=== PATIENT | female | born 2000 | race Caucasian/White ===

== ENCOUNTER 2023-09-17 14:50 | Emergency (ER) | payer OTHER, SELFPAY ==
[2023-09-17 14:53] VITALS: BP 127/67; PULSE 70; RESP 18; TEMP 36.8; O2SAT 100; BMI 26.2
--- NOTE | 2023-09-17 15:00 | ED.RN ---
given 2 cups of juice in triage
[2023-09-17 15:22] LABS: Bedside Glucose 63 mg/dL (74-106)
[2023-09-17 16:53] VITALS: PULSE 76; RESP 23; O2SAT 100
--- NOTE | 2023-09-17 16:58 | ED.RN ---
Addendum entered by Sobia Mcqueen 09/17/23 17:05: pt had a small amount of cheerios and some water this morning. had nothing else to eat before syncopal episode. [employer] she ate a meal and her blood sugar was 62 on arrival to the ED. Original Note: pt states she got dizzy and hot, felt like her brain was foggy and she wasn't able to comprehend what her professors were saying. then she suddenly passed out and woke up on the ground. unknown for how long pt was unconscious. denies any injury or hitting her head. pt states when i woke up it felt like someone was sitting on my chest and is now c/o intermittent chest pressure. has had some off and on acid reflux for the past few weeks. witnesses to the episode state pt was shaking and her eyes stayed open the whole time. denies complaints now.
--- OUTSIDE RECORDS SUMMARY | 2023-09-17 17:31 | XMS RPT_ITS | CCD ---
Author Name Unknown Address [address] [facility] [address] [place] [id number] Organization [facility] Care Team Providers Care Furniture Salesperson Name Role Phone Judson Zavala MD Primary Care Provider Ellen SILVERWARE BUFFING MACHINE OPERATOR.Aniya MARTÍNEZ Primary Care Provider ANIYA SMITH Attending Unavailable JUDSON ZAVALA Primary Care Unavailable DIONY DOLAN Attending Unavailable Medications Current Medications Medication Drug Class(es) Dates Sig (Normalized) Sig (Original) 1 ml medroxyPROGESTERone acetate 150 mg/ml injection (1 source) Progestin Start: 1 End: 2 medroxyPROGESTERone (DEPO-PROVERA) 150 mg/mL injection Inject 1 mL intramuscularly every 12 weeks. 1 mL 3 02/12/2021 01/07/2022 Discontinued Completed/Discontinued Medications Medication Drug Class(es) Dates Sig (Normalized) Sig (Original) 168 hr ethinyl estradiol 0.47557 mg/hr / norelgestromin 0.36058 mg/hr transdermal system (2 sources) Progestin, Estrogen Start: 01-07-2022 End: 12-20-2022 apply 1 dose transdermal route every week Ethinyl Estradiol-Norelges trom (XULANE) 150-35 mcg/24 hr patch Apply 1 Patch as directed one time a week. Continuous use, NO inactive week. 12 Patch 5 01/07/2022 12/20/2022 Discontinued Problems Active Problems Problem Classification Problem Date Documented Da te Episodic/Chronic Contraceptive and procreative management (1 source) Contraception status; Translations: [Encounter for surveillance of transdermal patch hormonal contraceptive device] Episodic Menstrual disorders (3 sources) Dysmenorrhea; Translations: [Dysmenorrhea, unspecified] Onset: 12-29-2018 12-29-2018 Chronic Other bone disease and musculoskeletal deformities (3 sources) Adolescent idiopathic scoliosis of thoracic spine; Translations: [Adolescent idiopathic scoliosis, thoracic region] Onset: 09-02-2016 09-02-2016 Chronic Other screening for suspected conditions (not mental disorders or infectious disease) (2 sources) Patient encounter status; Translations: [Encounter for screening for lipoid disorders] Episodic Past or Other Problems Problem Classification Problem Date Documented Da te Episodic/Chronic Fracture of lower limb (3 sources) Closed fracture of metatarsal bone; Translations: [Fracture of unspecified metatarsal bone(s), unspecified foot, initial encounter for closed fracture] Onset: 11-11-2011 11-11-2011 Episodic Unclassified (1 source) UDS FOR [place] [id number] PANEL UDS Onset: 02-18-2023 Results Test Name Value Interpretation Reference Range Facil ity Vital Signs Date Time Vital Sign Value Performing Clinician Kate franklin 12-20-2022 10:03-0400 Body height 172.7 cm Anyia Smith SILVERWARE BUFFING MACHINE OPERATOR.DEICER REPAIRER Work Phone: [facility] 12-20-2022 10:03-0400 Body weight 75.75 kg Aniya Smith SILVERWARE BUFFING MACHINE OPERATOR.DEICER REPAIRER Work Phone: [facility] 12-20-2022 10:03-0400 Diastolic blood pressure 70 mm[Hg] Aniya Smith SILVERWARE BUFFING MACHINE OPERATOR.DEICER REPAIRER Work Phone: [facility] 12-20-2022 10:03-0400 Heart rate 72 /min Aniya Smith SILVERWARE BUFFING MACHINE OPERATOR.DEICER REPAIRER Work Phone: [facility] 12-20-2022 10:03-0400 Respiratory rate 14 /min Aniya Smith SILVERWARE BUFFING MACHINE OPERATOR.DEICER REPAIRER Work Phone: [facility] 12-20-2022 10:03-0400 Systolic blood pressure 110 mm[Hg] Aniya Smith SILVERWARE BUFFING MACHINE OPERATOR.DEICER REPAIRER Work Phone: [facility] 01-07-2022 08:26-0400 Body height 170.2 cm Romi Mathis SILVERWARE BUFFING MACHINE OPERATOR.DEICER REPAIRER Work Phone: [facility] 01-07-2022 08:26-0400 Body weight 75.57 kg Romi Delfina SILVERWARE BUFFING MACHINE OPERATOR.DEICER REPAIRER Work Phone: [facility] 01-07-2022 08:26-0400 Diastolic blood pressure 60 mm[Hg] Romi [place] SILVERWARE BUFFING MACHINE OPERATOR.DEICER REPAIRER Work Phone: [facility] 01-07-2022 08:26-0400 Systolic blood pressure 110 mm[Hg] Romi [place] SILVERWARE BUFFING MACHINE OPERATOR.DEICER REPAIRER Work Phone: [facility] Encounters Encounter Date Encounter Type Care Provider Facility Start: 02-18-2023 ambulatory [facility] Facility:[facility] Start: 01-29-2023 ambulatory Romi Delfina SILVERWARE BUFFING MACHINE OPERATOR.DEICER REPAIRER Work Phone: [facility] Start: 01-29-2023 Patient encounter procedure Romi [place] SILVERWARE BUFFING MACHINE OPERATOR.DEICER REPAIRER Work Phone: OB/Gynecology Plan of Treatment Date Care Activity Detail Author Start: 01-28-2024 Urine microalbumin profile DTA P,TDAP,TD (7 - Td or Tdap) [facility] Start: 12-21-2023 COVID-19 VACCINE (3 - Booster for Pfizer series) COVID-19 VACCINE (3 - Booster for Pfizer series) [facility] Immunizations Immunization Date Immunization Notes Care Provider Fa cility 12-24-2016 Human Papillomavirus 9-valent vaccine Romi Delfina SILVERWARE BUFFING MACHINE OPERATOR.DEICER REPAIRER Work Phone: [facility] 08-12-2016 Human Papillomavirus 9-valent vaccine Romi Delfina SILVERWARE BUFFING MACHINE OPERATOR.DEICER REPAIRER Work Phone: [facility] 05-30-2016 Human Papillomavirus 9-valent vaccine Romi [place] SILVERWARE BUFFING MACHINE OPERATOR.DEICER REPAIRER Work Phone: [facility] 05-30-2016 meningococcal polysaccharide (groups A, C, Y and W-135) diphtheria toxoid conjugate vaccine (MCV4P) Romi [place] SILVERWARE BUFFING MACHINE OPERATOR.DEICER REPAIRER Work Phone: [facility] 01-27-2014 tetanus toxoid, redu arnoldo diphtheria toxoid, and acellular pertussis vaccine, adsorbed Romi Delfina SILVERWARE BUFFING MACHINE OPERATOR.DEICER REPAIRER Work Phone: [facility] Work Phone: 01-27-2014 varicella virus vaccine Faustino e [place] SILVERWARE BUFFING MACHINE OPERATOR.DEICER REPAIRER Work Phone: [facility] Work Phone: 06-14-2011 influenza virus vacc ine, live, attenuated, for intranasal use Romi [place] SILVERWARE BUFFING MACHINE OPERATOR.DEICER REPAIRER Work Phone: [facility] Work Phone: 12-12-2008 Chicken Pox (disease) Romi [place] SILVERWARE BUFFING MACHINE OPERATOR.DEICER REPAIRER Work Phone: [facility] Work Phone: 03-03-2007 diphtheria, tetanus toxoids and acellular pertussis vaccine Romi [place] SILVERWARE BUFFING MACHINE OPERATOR.DEICER REPAIRER Work Phone: [facility] 03-03-2007 measles, mumps and rubella virus vaccine Romi [place] SILVERWARE BUFFING MACHINE OPERATOR.DEICER REPAIRER Work Phone: [facility] 03-03-2007 poliovirus vaccine, inactivated Romi [place] SILVERWARE BUFFING MACHINE OPERATOR.DEICER REPAIRER Work Phone: [facility] 09-08-2002 diphtheria, tetanus toxoids and acellular pertussis vaccine Romi [place] SILVERWARE BUFFING MACHINE OPERATOR.DEICER REPAIRER Work Phone: [facility] Work Phone: 09-08-2002 haemophilus influenz ae type b vaccine, HbOC conjugate Romi [place] SILVERWARE BUFFING MACHINE OPERATOR.DEICER REPAIRER Work Phone: [facility] Work Phone: 09-08-2002 pneumococcal conjuga te vaccine, 7 valent Romi Delfina SILVERWARE BUFFING MACHINE OPERATOR.DEICER REPAIRER Work Phone: [facility] Work Phone: 05-26-2002 measles, mumps and rubella virus vaccine Romi [place] SILVERWARE BUFFING MACHINE OPERATOR.DEICER REPAIRER Work Phone: [facility] Work Phone: 05-26-2002 varicella virus vaccine Faustino e [place] SILVERWARE BUFFING MACHINE OPERATOR.DEICER REPAIRER Work Phone: [facility] Work Phone: 03-03-2002 haemophilus influenz ae type b vaccine, HbOC conjugate Romi Delfina SILVERWARE BUFFING MACHINE OPERATOR.DEICER REPAIRER Work Phone: [facility] Work Phone: 03-03-2002 hepatitis B vaccine, pediatric or pediatric/adolescent dosage Romi Delfina SILVERWARE BUFFING MACHINE OPERATOR.[facility] Work Phone: [facility] Work Phone: 03-03-2002 poliovirus vaccine, inactivated Romi Delfina SILVERWARE BUFFING MACHINE OPERATOR.[facility] Work Phone: [facility] Work Phone: 2001 diphtheria, tetanus toxoids and acellular pertussis vaccine Romi [place] SILVERWARE BUFFING MACHINE OPERATOR.[facility] Work Phone: [facility] Work Phone: 2001 haemophilus influenz ae type b vaccine, HbOC conjugate Romi Delfina SILVERWARE BUFFING MACHINE OPERATOR.[facility] Work Phone: [facility] Work Phone: 2001 pneumococcal conjuga te vaccine, 7 valent Romi [place] SILVERWARE BUFFING MACHINE OPERATOR.[facility] Work Phone: [facility] Work Phone: 2001 diphtheria, tetanus toxoids and acellular pertussis vaccine Romi Delfina SILVERWARE BUFFING MACHINE OPERATOR.[facility] Work Phone: [facility] Work Phone: 2001 haemophilus influenz ae type b vaccine, HbOC conjugate Romi [place] SILVERWARE BUFFING MACHINE OPERATOR.[facility] Work Phone: [facility] Work Phone: 2001 pneumococcal conjuga te vaccine, 7 valent Romi Delfina SILVERWARE BUFFING MACHINE OPERATOR.[facility] Work Phone: [facility] Work Phone: 2001 poliovirus vaccine, inactivated Romi [place] SILVERWARE BUFFING MACHINE OPERATOR.[facility] Work Phone: [facility] Work Phone: 2001 diphtheria, tetanus toxoids and acellular pertussis vaccine Romi Delfina SILVERWARE BUFFING MACHINE OPERATOR.[facility] Work Phone: [facility] Work Phone: 2001 pneumococcal conjuga te vaccine, 7 valent Romi Delfina SILVERWARE BUFFING MACHINE OPERATOR.DEICER REPAIRER Work Phone: [facility] Work Phone: 2001 poliovirus vaccine, inactivated Romi Delfina SILVERWARE BUFFING MACHINE OPERATOR.DEICER REPAIRER Work Phone: [facility] Work Phone: 2001 hepatitis B vaccine, pediatric or pediatric/adolescent dosage Romi Delfina SILVERWARE BUFFING MACHINE OPERATOR.DEICER REPAIRER Work Phone: [facility] Work Phone: 2001 hepatitis B vaccine, pediatric or pediatric/adolescent dosage Romi [place] SILVERWARE BUFFING MACHINE OPERATOR.DEICER REPAIRER Work Phone: [facility] Work Phone: Payers Date Payer Category Payer Unknown [employer] PPO [id number] 2019-Present [phone] [address] [place] [address] PPO [id number] 2019 Unknown [employer] PPO [id number] 2019-Present [phone] [address] [place] [address] PPO [id number] 2019 Unknown [id number] Self-pay Unknown [id number] Social History Date Type Detail Facility Start: 10-20-2017 Tobacco smoking stat us [facility] [place] Never smoked tobacco [facility] Work Phone: Start: 01-07-2022 Alcohol intake Current non-dr rim fire priming operator of alcohol (finding) [facility] Start: 01-31-2020 End: 12-20-2022 History SDOH Social Connections Phone 5 [facility] Start: 01-31-2020 History SDOH Social Connections Get Together 4 [facility] Start: 01-31-2020 End: 12-20-2022 History SDOH Social Connections Judaism 1 [facility] Start: 01-31-2020 End: 12-20-2022 History SDOH Social Connections Membership 2 [facility] Start: 01-31-2020 History SDOH Social Connections Meetings 99 [facility] Start: 01-31-2020 History SDOH Social Connections Living 7 [facility] Start: 01-31-2020 History SDOH Physica l Activity DPW 0 [facility] Start: 01-31-2020 Education 13 [facility] Start: 2001 Sex Assigned At Female [facility] Start: 12-28-2021 End: 01-07-2022 Exposure to SARS-CoV-2 (event) Not sure [facility] Work Phone: Start: 10-20-2017 Tobacco use and exposure Smokeless tobacco non-user [facility] Work Phone: Start: 12-20-2022 Alcohol intake Current drinke r of alcohol (finding) [facility] Start: 12-20-2022 History SDOH Social Connections Meetings 98 [facility] Start: 12-20-2022 History SDOH Physica l Activity DPW 3 [facility] Start: 12-20-2022 History SDOH Physica l Activity MPS 6 [facility] Start: 12-20-2022 Alcohol Comment [facility] Progress note 12-20-2022 Note Date & Type Note Facility 12-20-2022 Note HNO ID: [id number] Author: Aniya Smith APRN.DEICER REPAIRER Service: ? Author Type: Nurse Practitioner Type: Progress Notes Filed: 12/20/2022 10:34 AM Note Text: Chief Complaint Patient presents with: Establish Care HPI Kosta Gomez is a 22 year old female who presents here today for Above Complaints.. Patient presents to establish care. Patient was a patient of Dr. Mendieta but is now 22 and needed to establish. Past medical history, appointments, medications, allergies reviewed. Previous Medical History PAST MEDICAL HISTORY Diagnosis Date PMH - PAST MEDICAL HISTORY OF 2005 normal color vision PMH - PAST MEDICAL HISTORY OF 04/2007 Dr Stubbs - left arm fracture Varicella 12/01 Mom ? mild case - few spots on back and chest Previous Surgical History PAST SURGICAL HISTORY Procedure Laterality Date NONE Family History FAMILY HISTORY Problem Relation Age of Onset Hypertension Maternal Grandfather Patient Allergies ALLERGIES No Known Allergies Current Medications Current Outpatient Medications on File Prior to Visit Medication Sig Ethinyl Estradiol-Norelgestrom (XULANE) 150-35 mcg/24 hr patch Apply 1 Patch as directed one time a week. Continuous use, NO inactive week. No current facility-administered medications on file prior to visit. Social History Social History Tobacco Use Smoking status: Never Smokeless tobacco: Never Vaping Use Vaping Use: Never used Substance Use Topics Alcohol use: No Drug use: No Review of Symptoms REVIEW OF SYSTEMS GENERAL: No weight loss, malaise or fevers HEENT: Negative for frequent or significant headaches, No changes in hearing or vision, no nose bleeds or other nasal problems NECK: Negative for lumps, goiter, pain and significant neck swelling RESPIRATORY: Negative for cough, hemoptysis, wheezing, COPD, dyspnea or shortness of breath CARDIOVASCULAR: Negative for chest pain, leg swelling, hypertension, CHF or palpitations GI: No nausea, vomiting, or diarrhea : No history of dysuria, frequency or incontinence MUSCULOSKELETAL: Negative for joint pain or swelling, back pain or muscle pain SKIN: Negative for lesions, rash, and itching PSYCH: Negative for sleep disturbance, mood disorder and recent psychosocial stressors HEMATOLOGY/LYMPHOLOGY: Negative for prolonged bleeding, bruising easily or swollen nodes ENDOCRINE: Negative for cold or heat intolerance, polyuria, polydipsia and goiter NEURO: No history of headaches, syncope, paralysis, seizures or tremors EXAM: BP 110/70 Pulse 72 Resp 14 Ht 172.7 cm (5' 8 ) Wt 75.8 kg (167 lb) LMP 02/19/2019 BMI 25.39 kg/m? General Appearance: Well appearing, alert, in no acute distress, well-hydrated, well nourished.. Skin: Skin color, texture, turgor normal, no suspicious rashes or lesions. Neck: Supple, no adenopathy; thyroid symmetric, normal size, no bruits. Lungs: Lungs clear to auscultation. No wheezing, rhonchi, rales.. Heart: RRR without murmur, gallop, or rubs. No ectopy. Abdomen: Normal abdominal exam, Abdomen soft, non-tender. Bowel sounds normal. No masses, organomegaly. Extremities: No deformities, edema, skin discoloration, clubbing or cyanosis. Good capillary refill. . Peripheral Pulses: Normal. Neurologic: Gait normal. Reflexes normal and symmetric. Sensation grossly intact.. Health Maintenance List MENINGOCOCCAL B: Consider based on risk(1 of 2 - Risk Bexsero 2-dose series) Never done GC (GONORRHEA) SCREENING (18-24) Never done HEPATITIS C SCREENING Never done HIV SCREENING Never done CHLAMYDIA SCREENING (18-24) Never done COVID-19 VACCINE(3 - Booster for Pfizer series) due on 11/27/2020 PAP TESTING Never done DEPRESSION ASSESSMENT Never done INFLUENZA(Season Ended) due on 04/25/2023 DTAP,TDAP,TD(7 - Td or Tdap) due on 01/28/2024 HEPATITIS B Completed HPV VACCINE Completed ASSESSMENT/PLAN: 1. Wellness examination - ICD9: V70.0, ICD10: Z00.00 (primary diagnosis) - Counseled on healthy diet and regular exercise - Calcium intake with supplements or by diet of 1000 mg/day for under 50, 5500-2515 mg/day for 50+ - Discussed need and benefit for weight loss. BMI 25.39 kg/(m2) - Counseled patient on limiting alcohol intake to 1 drink per day - Discussed safe sex practices and avoidance of STIs - Depression screening tool completed and reviewed with patient. Based on score and interview, patient is not at risk for depression and recommended no further intervention at this time. - Follow up for annual exam in one year - CBC + DIFF - COMP METABOLIC PANEL 2. Encounter for lipid screening for cardiovascular disease - ICD9: V77.91, V81.2, ICD10: Z13.220, Z13.6 - LIPID PANEL, NONFASTING 3. Screening for diabetes mellitus - ICD9: V77.1, ICD10: Z13.1 - HGB A1C Aniya Smith APRN.CNP [facility] Instructions 12-20-2022 Patient Instructions Note Date & Type Note Facility 12-20-2022 Instructions Aniya Smith APRN.CNP - 12/20/2022 10:29 AM EDT Complete lab work Follow up in 1 year Schedule with CLERICAL PRODUCTION WORKER documented in this encounter [facility] History of Present illness Narrative 12-20-2022 Aniya Smith, JEEVAN.DEICER REPAIRER - 12/20/2022 10:08 AM EDT Note Date & Type Note Facility 12-20-2022 History of Presen t illness Narrative Chief Complaint Patient presents with: [facility] HPI Kosta Gomez is a 22 year old female who presents here today for Above Complaints.. Patient presents to [facility]. Patient was a patient of Dr. Mendieta but is now 22 and needed to establish. Past medical history, appointments, medications, allergies reviewed. Previous Medical History PAST MEDICAL HISTORY Diagnosis Date PMH - PAST MEDICAL HISTORY OF 2005 normal color vision PMH - PAST MEDICAL HISTORY OF 04/2007 Dr Stubbs - left arm fracture Varicella 12/01 Mom ? mild case - few spots on back and chest Previous Surgical History PAST SURGICAL HISTORY Procedure Laterality Date NONE Family History FAMILY HISTORY Problem Relation Age of Onset Hypertension Maternal Grandfather Patient Allergies ALLERGIES No Known Allergies Current Medications Current Outpatient Medications on File Prior to Visit Medication Sig Ethinyl Estradiol-Norelgestrom (XULANE) 150-35 mcg/24 hr patch Apply 1 Patch as directed one time a week. Continuous use, NO inactive week. No current facility-administered medications on file prior to visit. Social History Social History Tobacco Use Smoking status: Never Smokeless tobacco: Never Vaping Use Vaping Use: Never used Substance Use Topics Alcohol use: No Drug use: No Review of Symptoms REVIEW OF SYSTEMS GENERAL: No weight loss, malaise or fevers HEENT: Negative for frequent or significant headaches, No changes in hearing or vision, no nose bleeds or other nasal problems NECK: Negative for lumps, goiter, pain and significant neck swelling RESPIRATORY: Negative for cough, hemoptysis, wheezing, COPD, dyspnea or shortness of breath CARDIOVASCULAR: Negative for chest pain, leg swelling, hypertension, CHF or palpitations GI: No nausea, vomiting, or diarrhea : No history of dysuria, frequency or incontinence MUSCULOSKELETAL: Negative for joint pain or swelling, back pain or muscle pain SKIN: Negative for lesions, rash, and itching PSYCH: Negative for sleep disturbance, mood disorder and recent psychosocial stressors HEMATOLOGY/LYMPHOLOGY: Negative for prolonged bleeding, bruising easily or swollen nodes ENDOCRINE: Negative for cold or heat intolerance, polyuria, polydipsia and goiter NEURO: No history of headaches, syncope, paralysis, seizures or tremors EXAM: BP 110/70 Pulse 72 Resp 14 Ht 172.7 cm (5' 8 ) Wt 75.8 kg (167 lb) LMP 02/19/2019 BMI 25.39 kg/m General Appearance: Well appearing, alert, in no acute distress, well-hydrated, well nourished.. Skin: Skin color, texture, turgor normal, no suspicious rashes or lesions. Neck: Supple, no adenopathy; thyroid symmetric, normal size, no bruits. Lungs: Lungs clear to auscultation. No wheezing, rhonchi, rales.. Heart: RRR without murmur, gallop, or rubs. No ectopy. Abdomen: Normal abdominal exam, Abdomen soft, non-tender. Bowel sounds normal. No masses, organomegaly. Extremities: No deformities, edema, skin discoloration, clubbing or cyanosis. Good capillary refill. . Peripheral Pulses: Normal. Neurologic: Gait normal. Reflexes normal and symmetric. Sensation grossly intact.. Health Maintenance List MENINGOCOCCAL B: Consider based on risk(1 of 2 - Risk Bexsero 2-dose series) Never done GC (GONORRHEA) SCREENING (18-24) Never done HEPATITIS C SCREENING Never done HIV SCREENING Never done CHLAMYDIA SCREENING (18-24) Never done COVID-19 VACCINE(3 - Booster for Pfizer series) due on 11/27/2020 PAP TESTING Never done DEPRESSION ASSESSMENT Never done INFLUENZA(Season Ended) due on 04/25/2023 DTAP,TDAP,TD(7 - Td or Tdap) due on 01/28/2024 HEPATITIS B Completed HPV VACCINE Completed ASSESSMENT/PLAN: 1. Wellness examination - ICD9: V70.0, ICD10: Z00.00 (primary diagnosis) - Counseled on healthy diet and regular exercise - Calcium intake with supplements or by diet of 1000 mg/day for under 50, 2518-7507 mg/day for 50+ - Discussed need and benefit for weight loss. BMI 25.39 kg/(m^2) - Counseled patient on limiting alcohol intake to 1 drink per day - Discussed safe sex practices and avoidance of STIs - Depression screening tool completed and reviewed with patient. Based on score and interview, patient is not at risk for depression and recommended no further intervention at this time. - Follow up for annual exam in one year - CBC + DIFF - COMP METABOLIC PANEL 2. Encounter for lipid screening for cardiovascular disease - ICD9: V77.91, V81.2, ICD10: Z13.220, Z13.6 - LIPID PANEL, NONFASTING 3. Screening for diabetes mellitus - ICD9: V77.1, ICD10: Z13.1 - HGB A1C Aniya Smith APRN.MAURICIO documented in this encounter [facility] History of Present illness Narrative 01-07-2022 Romi Mathis APRN.CNP - 01/07/2022 8:26 AM EDT Note Date & Type Note Facility 01-07-2022 History of Presen t illness Narrative Kosta is a 21 year old who presents for an annual gynecologic exam without complaints. Presents: alone Menses: no menses . Contraception: Depo Provera HPV vaccine: Yes Last pap smear: never Sexually active: Yes Patient concerns for STD exposure: No. Pain with intercourse: No Postcoital bleeding: No OB History T0 L0 SAB0 IAB0 Ectopic0 Multiple0 Live Births0 Mid Level Clinician History LMP: 02/19/2019, Injection Age at Menarche: Age at First : Age at Menopause: Mid Level Clinician History Comments: Sexual Activity: Yes; Male Contraception: Injection PAST MEDICAL HISTORY Diagnosis Date PMH - PAST MEDICAL HISTORY OF 2005 normal color vision PMH - PAST MEDICAL HISTORY OF 04/2007 Dr Stubbs - left arm fracture Varicella 12/01 Mom ? mild case - few spots on back and chest PAST SURGICAL HISTORY Procedure Laterality Date NONE FAMILY HISTORY Problem Relation Age of Onset Hypertension Maternal Grandfather SOCIAL HISTORY Social History Tobacco Use Smoking status: Never Smoker Smokeless tobacco: Never Used Vaping Use Vaping Use: Never used Substance Use Topics Alcohol use: No Drug use: No REVIEW OF SYSTEMS Abdomen: No bloating, early satiety, indigestion, or increased flatulence. No abdominal pain, nausea, vomiting, diarrhea, or constipation. Bladder: No dysuria, gross hematuria, urinary frequency, urinary urgency, or incontinence. Breast: No breast lumps, nipple d/c, overlying skin changes, redness or skin retraction. Allergies and current medication updated:Yes EXAM: Ht 5' 7 (1.70m) Wt 166 lb 9.6 oz (75.6kg) LMP 02/19/2019 BMI 26.09 kg/(m^2). GENERAL: pleasant, Female in no apparent distress HEENT: Normocephalic, atraumatic, mucus membranes moist and no lesions CHEST: Normal inspiratory effort NEURO: alert and oriented x3,exam grossly non-focal EXTREMITIES: normal ASSESSMENT/PLAN: 1) Health maintenance: Pap starting at the age of 21. Safe sex practices reviewed. Nutrition, exercise, and routine health maintenance exams reviewed. 2) Contraception: patch. Contraceptive options reviewed and information provided. Switched from Depo to the Patch today 3) STD screening: Declined STD check. 4) Follow up one year or sooner as needed. Romi Mathis APRN.MAURICIO documented in this encounter [facility] Evaluation note Note Date & Type Note Facility documented in this encounter [facility] Evaluation note Note Date & Type Note Facility documented in this encounter [facility] Summary Purpose Family History No Family History Records FoundNo Family History Records Found Advance Directives No Advanced Directives Records FoundNo Advanced Directives Records Found Additional Source Comments Source Comments (unrecognize d section and content) In the event this informatio n is protected by the Federal Confidentiality of Alcohol and Drug Abuse Patient Records regulations: The Federal rules restrict any use of the information to criminally investigate or prosecute any alcohol or drug abuse patient.[facility] the event this information is protected by the Federal Confidentiality of Alcohol and Drug Abuse Patient Records regulations: The Federal rules restrict any use of the information to criminally investigate or prosecute any alcohol or drug abuse patient.[facility] the event this information is protected by the Federal Confidentiality of Alcohol and Drug Abuse Patient Records regulations: The Federal rules restrict any use of the information to criminally investigate or prosecute any alcohol or drug abuse patient.[facility] Reason for Visit (unrecogniz ed section and content) Reason Comments Establish Care Care Teams (unrecognized sec tion and content) Furniture Salesperson Relationship Specialty Start Date End Date Aniya Smith APRN.DEICER REPAIRER [address] [place], [place] [address] PCP - General Family Medicine 12/20/22 Furniture Salesperson Relationship Specialty Start Date End Date Aniya Smith APRN.DEICER REPAIRER [address] [place], [place] [id number] PCP - General Family Medicine 12/20/22 INFORMATION SOURCE (unrecogn ized section and content) DATE CREATED AUTHOR AUTHOR'S ORGANIZ ATION 02/26/2023 [facility] FOR RECORDS PERTAINING TO PATIENTS WHO ARE OR HAVE BEEN ENROLLED IN A CHEMICAL DEPENDENCY/SUBSTANCEABUSE PROGRAM, SOME INFORMATION MAY BE OMITTED. This clinical summary was aggregated from multiple sources. Caution should be exercised in using it in the provision of clinical care. This summary normalizes information from multiple sources, and as a consequence, information in this document may materially change the coding, format and clinical context of patient data. In addition, data may be omitted in some cases. CLINICAL DECISIONS SHOULD BE BASED ON THE PRIMARY CLINICAL RECORDS. [employer] [facility]. provides no warranty or guarantee of the accuracy or completeness of information in this document.
--- NOTE | 2023-09-17 18:02 | NURSING ---
NO OLD EKGS
[2023-09-17 18:03] VITALS: BP 108/84; PULSE 64; RESP 15; O2SAT 100
--- NOTE | 2023-09-17 18:10 | RAD_ITS ---
STUDY: X-RAY CHEST REASON FOR EXAM: Female, 23 years old. cp TECHNIQUE: AP portable COMPARISON: None. FINDINGS: The lungs are clear and expanded. There is no demonstrated pleural abnormality. Normal size heart. Normal mediastinum and melina. Normal visualized pulmonary arteries. Normal visualized aortic arch and descending thoracic aorta. Dorsal spine demonstrates scoliosis. Normal visualized ribs, clavicles, and shoulders. There is no demonstrated abnormality of the visualized soft tissue structures of the upper abdomen. RAD/Chest 1 View (Portable) IMPRESSION: No acute cardiopulmonary pathology Electronically Signed: Prieto Eason MD at 18:24 EST ,
[2023-09-17] MEDS: 0.9% Normal Saline (1000mL) 1,000 ML 150 ML IV (18:17)
[2023-09-17 18:37] LABS: Absolute Lymphocyte Count 2.15 X10^3/uL (0.83-4.51); Absolute Neutrophil Count 4.7 X10^3/uL (2.0-7.7); Basophil# 0.01 X10^3/uL; Basophil% 0.1 % (0-1); Eosinophil# 0.08 X10^3/uL; Hematocrit 44.2 % (37-47); Hemoglobin 14.3 g/dL (12.0-15.0); Lymphocyte # 2.15 X10^3/ul (0.83-4.51); Lymphocyte % 28.2 % (19-41); Mean Corp Hgb Conc 32.4 g/dL (32-36); Mean Corpuscular Hgb 28.3 pg (27.0-32.0); Mean Corpuscular Volume 87.5 fL (81-99); Mean Platelet Vol. 10.3 fl (6.2-12.0); Monocyte# 0.66 X10^3/uL; Monocyte% 8.7 % (0-10); NRBC Flagged by Analyzer 0 % (0-5); Neutrophil # 4.69 X10^3/uL (2.7-7.7); Neutrophil % 61.6 % (47-70); Platelet Count 233 K/mm3 (150-450); RBC Distribution Width CV 13.1 % (11.6-14.6); RBC Distribution Width SD 41.8 fl (35.1-43.9); Red Blood Count 5.05 M/mm3 (4.2-5.4); White Blood Count 7.6 K/mm3 (4.4-11.0)
[2023-09-17 18:44] LABS: Internal QC Validated? YES +Cl - CLEAR BKGD; Pregnancy, Serum, hCG Quali. NEGATIVE Negative
[2023-09-17 18:53] LABS: Anion Gap 2 (5-15); BUN 13 mg/dL (7-18); BUN/Creat Ratio 21.9 RATIO (10-20); Chloride 106 mmol/L (98-107); Creatinine, Serum 0.59 mg/dL (0.55-1.02); EST Glomerular Filtration Rate 134 mL/min (>60); Est Glom Filt Rate - Afr Amer 163 mL/min (>60); Estimated Creatinine Clearance 158.98 ml/min; Glucose 94 mg/dL (74-106); Potassium 3.4 mmol/L (3.5-5.1); Sodium Level 138 mmol/L (136-145); Troponin-I HS 4 pg/mL (3.0-54.0)
[2023-09-17 20:00] VITALS: BP 101/54; PULSE 70; RESP 15; O2SAT 100
--- NOTE | 2023-09-17 20:58 | EDS_ITS ---
HPI History of Present Illness Chief Complaint: Syncope Informant: patient and parent Onset/Context/Timing Onset: Today Narrative Narrative: Patient presents after syncopal episode. Patient was sitting in class today in a nursing class. She felt lightheaded and foggy and had a syncopal episode falling to the ground. She complains of some slight chest heaviness. She denies having palpitations or chest pain prior to her syncopal episode. No significant family history of heart disease or arrhythmia. PFSH PFSH Medical History no medical history no medical history Home Medications NK 09/17/23 [History Last Taken Unknown] Allergy/AdvReac Type Severity Reaction Status Date / Time No Known Allergies Allergy Verified 09/17/23 14:52 Social History Smoking Status: Never smoker ROS ROS ED Constitutional Constitutional ED: Denies chills or fever(s) Eyes Eyes: Denies discharge from eye(s) ENT ENT ED: Denies discharge from eye(s), rhinorrhea or sore throat Cardiovascular Cardiovascular: Reports chest pain; Denies palpitations or racing heartbeat Respiratory/Chest Respiratory/Chest: Denies cough or dyspnea Gastrointestinal Gastrointestinal: Denies abdominal pain, nausea or vomiting Musculoskeletal Musculoskeletal: Denies back pain or extremity pain Integumentary Denies Abrasions or rash Neurologic Neurologic: Denies headache(s) or weakness Psychiatric Psychiatric: Denies anxiety or depression Allergic/Immunologic Allergic/Immunologic ED: Denies lip swelling or urticaria EXAM Physical Exam Const Vital Signs: 09/17/23 14:53 09/17/23 16:53 09/17/23 16:53 Temperature 98.3 F Temperature Source Temporal Pulse Rate 70 76 Respiratory Rate 18 23 H Respiratory Effort Normal Respiratory Pattern Normal Blood Pressure 127/67 H Blood Pressure Mean 87 Pulse Ox 100 100 Oxygen Delivery Method Room Air Room Air 09/17/23 18:03 09/17/23 20:00 09/17/23 21:02 Temperature Temperature Source Pulse Rate 64 70 67 Respiratory Rate 15 15 18 Respiratory Effort Respiratory Pattern Blood Pressure 108/84 H 101/54 L 101/54 L Blood Pressure Mean 92 69 69 Pulse Ox 100 100 100 Oxygen Delivery Method Room Air Room Air Positive well nourished and well developed General Appearance ED: well developed HEENT Reports moist mucous membranes Eyes EOMs intact bilaterally Chest Wall inspection of chest normal and palpation of chest normal Resp normal respiratory effort and clear to auscultation bilaterally Cardio regular rate and regular rhythm GI non-tender Palpation: soft Extremity normal to inspection Neuro oriented x3 and no sensory deficits noted Motor Exam: strength 5/5 throughout Psych mental status grossly normal Skin no rashes or lesions noted MDM MDM MDM Narrative Medical decision making narrative: Patient placed on playground monitor. IV line initiated. EKG obtained to evaluate for cardiac arrhythmia/ischemia. Chest x-ray obtained to evaluate for acute lung pathology, cardiac size, or mediastinal abnormality. Labwork obtained to evaluate for leukocytosis, anemia, and electrolyte derangement. Patient given IV fluids. History & Record Review Discussion w/independent historian: Patient and Family Lab Data Attestation: I reviewed the patient's lab results. Labs: Laboratory Results - last 24 hr 09/17/23 09/17/23 15:03 18:10 WBC 7.6 RBC 5.05 Hgb 14.3 Hct 44.2 MCV 87.5 MCH 28.3 MCHC 32.4 RDW Std Deviation 41.8 RDW Coeff of Sebastian 13.1 Plt Count 233 MPV 10.3 Immature Gran % (Auto) 0.400 Neut % (Auto) 61.6 Lymph % (Auto) 28.2 Clayton % (Auto) 8.7 Eos % (Auto) 1.0 Baso % (Auto) 0.1 Absolute Neuts (auto) 4.7 Absolute Lymphs (auto) 2.15 Nucleated RBC % 0 Sodium 138 Potassium 3.4 L Chloride 106 Carbon Dioxide 30.0 Anion Gap 2 L BUN 13 Creatinine 0.59 Estim Creat Clear Calc 158.98 Est GFR (MDRD) Af Amer 163 Est GFR (MDRD) Non-Af 134 BUN/Creatinine Ratio 21.9 H Glucose 94 Calcium 9.0 Troponin I High Sens 4 Serum , Qual NEGATIVE POC Glucose 63 L Radiography Chest X-Ray - ED: 1 View, Read by ED Physician, Normal, Heart, Lungs and Mediastinum Diagnostic Testing: Clinical Impression(s) from Imaging Studies Chest X-Ray 09/17/23 18:10 IMPRESSION: No acute cardiopulmonary pathology Electronically Signed: Prieto Eason MD at 18:24 EST , EKG Initial EKG: Attestation: I personally reviewed and interpreted this EKG as follows: Interpretation: Sinus Rhythm (Sinus at 69 with no acute ischemia. Sinus arrhythmia noted.) Treatment and Re-Evaluation :: CBC was a white count of 7.6 with a hemoglobin of 14.3. Chemistry studies significant only for potassium of 3.4. Glucose on blood work is 94. test negative. Troponin is normal at 4. EKG is sinus rhythm with sinus arrhythmia. No acute ischemia. Patient has had no arrhythmias noted on playground monitor during her stay. Chest x-ray reveals no acute abnormalities per my interpretation. Radiology interpretation reviewed and agreed. On repeat evaluation patient feels significant improved and back to baseline. She is comfortable with discharge to home. Discharge Plan Triage Chief Complaint: Syncope ED Provider: Gloria Childs Dx/Rx/DC Orders Clinical Impression: Syncope Instructions: ED Fainting, Vagal Reaction Prescriptions: No Action NK Primary Care Provider: Jocelyn Hughes Referrals: Jocelyn Hughes, VP [facility] [Primary Care Provider] - 1 Week Disposition Disposition: Home, Self Care Discharge Date/Time: 09/17/23 21:06
[2023-09-17 21:02] VITALS: BP 101/54; PULSE 67; RESP 18; O2SAT 100
== END 2023-09-17 21:06 | disposition home or self-care (01) ==
PROVIDERS: Emergency Provider Emergency Medicine; PCP Nurse Practitioner Family; Visit Provider Emergency Medicine
DX: R55 Syncope and collapse (principal)
CPT/HCPCS: 71045; 80048; 82962; 84484; 84703; 85025; 93005; 99284; J7030

== ENCOUNTER → 2025-07-04 | Outpatient (CLI) | payer OTHER, SELFPAY ==
[2025-07-04 17:58] LABS: Hematocrit 41.1 % (37-47); Hemoglobin 13.2 g/dL (12.0-15.0); Immature Granulocytes Count 0.020 X10^3/uL (0.0-0.0); Mean Corp Hgb Conc 32.1 g/dL (32-36); Mean Corpuscular Volume 88.4 fL (81-99); Mean Platelet Vol. 11.3 fl (6.2-12.0); NRBC Flagged by Analyzer 0 % (0-5); Platelet Count 211 K/mm3 (150-450); RBC Distribution Width CV 13.2 % (11.6-14.6); RBC Distribution Width SD 43.0 fl (35.1-43.9); Red Blood Count 4.65 M/mm3 (4.2-5.4); White Blood Count 7.3 K/mm3 (4.4-11.0)
[2025-07-04 18:23] LABS: Ferritin 77 ng/mL (22-378); Iron 72 ug/dL (50-170); Iron Binding Capacity,Unsat 152 ug/dL (228-428)
[2025-07-04 18:49] LABS: Iron Binding Capacity,Total 224 ug/dL (250-450)
== END | disposition home or self-care (01) ==
LOC: MTLAB 16:39
PROVIDERS: PCP Nurse Practitioner Family; Referring Provider Physician Assistant Medical; Visit Provider Physician Assistant Medical
DX: R53.83 Other fatigue (principal)
CPT/HCPCS: 36415; 82728; 83540; 83550; 85025